=== PATIENT | female | born 1965 | race Caucasian/White ===

== ENCOUNTER → 2023-09-12 15:33 | Outpatient (REF) | payer OTHER, SELFPAY | LOC: HWWDC 15:33 | PROVIDERS: ATTENDING PHYSICIAN Obstetrics & Gynecology; FAMILY PHYSICIAN Family Medicine | DX: Z12.31 Encounter for screening mammogram for malignant neoplasm of breast (principal) | CPT/HCPCS: 77063; 77067 ==

== ENCOUNTER 2023-11-01 15:22 | Emergency (ER) | payer OTHER, SELFPAY ==
[2023-11-01 15:23] VITALS: BP 159/110
--- NOTE | 2023-11-01 16:09 | ED.GENMED ---
History of Present Illness
General
Chief Complaint: Generalized Pain
Source: patient
Time Seen by Provider: 11/01/23 15:57
Travel History
Have you had any contact with someone who has COVID-19?: No
Do you have any symptoms of coronavirus? Fever > 100 degrees, chills, cough, shortness of breath, sore throat, loss of taste or smell, muscle aches, or headache?: No
History of Present Illness
History of Present Illness:
58-year-old female with past medical history of hypertension, mild chronic kidney disease, anxiety for evaluation after she has had increased joint pain over the last 4 to 5 days stating her fingers, bilateral wrists, shoulders, knees, ankles are
all aching. Patient states that she has been working outside around her daughter's house and states that while the activity itself is usual for her she is concerned for possible tick bite although noting she has not seen any ticks on her nor any
rashes, fevers or flulike symptoms. She has been taking Tylenol with some relief. Denies any history of similar. Family history was noncontributory. Social history was also contributory.
Past History
Past History
ED Past Medical History: HTN, Psychiatric (Anxiety) and Other ( fatty liver)
ED Past Surgical History: Cholecystectomy and (x2)
Social History
Tobacco: Non-smoker
Alcohol: None
Drug: None
Personal:
Living: with family
Employment: Not employed
Family History
Family History: CAD
Review of Systems
Review of Systems
All Other Systems: ROS reviewed and negative except as documented in HPI and ROS
Phy Exam
Physical Exam
Physical Exam:
GENERAL: Alert , in no apparent distress
EYE: conjunctiva clear
NECK: Supple
ENT: o/p clr, mmm.
CARDIAC: Regular rate and rhythm
LUNGS: Clear breath sounds bilaterally, no acute respiratory distress, no wheezes/rales/rhonchi
NEUROLOGICAL: Alert and oriented
SKIN: Warm and dry, skin intact.
MUSCULOSKELETAL: well perfused. No edema or erythema. Patient allows for full range of motion of bilateral upper and lower extremities at all major joints without much difficulty. No crepitus.
PSYCH: Normal and appropriate interaction.
Scores
Heart Failure Risk
Heart Failure Risk Score: Not Applicable
Heart Score for Chest Pain Patients
STEMI patient?: Not applicable
Withdrawal Assessment of Alcohol
Withdrawal Assessment Completed?: Not applicable
Course
Orders/Labs/Results
Orders:
Orders
11/01/23 16:17
CRP [C-Reactive Protein] Urgent
Complete Blood Count/With Diff Urgent
Comprehensive Metabolic Panel Urgent
ESR [Erythrocyte Sed Rate] Urgent
Lyme Progressive Urgent
Abnormal Lab Results
11/01/23
16:17
Neutrophils % 78.0 H %
(42.2-75.2)
Lymphocytes % 16.4 L %
(20.5-51.1)
BUN 18 H mg/dl
(7-17)
Glucose 111 H mg/dl
(70-99)
Calcium 10.5 H mg/dl
(8.4-10.2)
ALT 39 H U/L
(0-35)
11/01/23 16:17
11/01/23 16:17
Vital Signs
Initial and Last Documented VS:
Initial Vital Signs
Temp Pulse Resp BP Pulse Ox
98.7 F 107 19 159/110 97
11/01/23 15:23 11/01/23 15:23 11/01/23 15:23 11/01/23 15:23 11/01/23 15:23
Last Documented Vital Signs
Temp Pulse Resp BP Pulse Ox
98.7 F 107 19 159/110 97
11/01/23 15:23 11/01/23 15:23 11/01/23 15:23 11/01/23 15:23 11/01/23 15:23
MDM/Problems Addressed
Differential Diagnosis Includes:
Rheumatological disorder given polyarthropathy and patient's age, less concern for infection but given outdoor yard work over the last few weeks will check a Lyme titer. Less concern for viral syndrome
MDM/Problems Addressed:
58-year-old female presenting to the emergency department for polyarthropathy that has been ongoing for the last 4 to 5 days. Patient is in no acute distress and otherwise hemodynamically stable. No outward signs of infection. Will check labs
including inflammatory markers. Overall I am not suspicious for any emergent pathologies and patient will likely need to follow-up with primary care provider for further testing and potentially even a rheumatological workup. Will trial steroids as
patient has chronic kidney disease and would like to avoid NSAIDs but would like patient to have some benefit from an anti-inflammatory. Anticipate discharge home.
Chronic conditions affecting care: HTN
*Pulse Oximetry
Patient hypoxic: no
*Critical Care Note
Total Time (30-74mins, 75-104mins- exclusive of procedures): Not Applicable
Patient Management
Escalation/DeEscalation of care consider admission/obs:
Patient's labs are unremarkable. She is ultimately stable for discharge home and outpatient follow-up with primary care provider. Aware of return precautions. Patient was also made aware that she will be notified via telephone if any
abnormalities on her Lyme test.
ED Attending Note
-
Portions of this chart may have been created with voice recognition software.� Occasional wrong word or��sound alike� substitutions may have occurred due to the inherent limitations of voice recognition software.
Discharge Plan
Departure
Patient Disposition: Home (Routine Discharge)
Date of Disposition: 11/01/23
Time of Disposition: 17:22
Patient with high blood pressure during this ER visit?: Yes
Discharge Problem:
Polyarthralgia
Instructions: Joint Pain
Prescriptions:
New
prednisone 10 mg Tablet
See Rx Instructions .ROUTE .COMPLEX Qty: 30 0RF
Rx Instructions:
Take By Mouth:
40 mg daily x3 days, 30 mg daily x3 days,
20 mg daily x3 days, 10 mg daily x3 days.
No Action
lorazepam 1 MG tablet
1 mg PO BID PRN (Reason: anxiety)
Fllpllp-Bilhti-Efqp 20-5-12.5
1 tab PO DAILY
ondansetron 4 mg tablet,disintegrating
4 mg PO TIDPRN PRN (Reason: nausea/vomiting) Qty: 10 0RF
pantoprazole [Protonix] 40 mg tablet,delayed release (DR/EC)
40 mg PO DAILY 14 Days Qty: 14 0RF
Referrals:
Jaswinder Horowitz MD [Family Provider] -
Interventions
Interventions:
*Risk Screen - Suicide Last Done: 11/01/23 15:23
*General Assessment Last Done: 11/01/23 15:23
*Neglect/Abuse Screening Last Done: 11/01/23 15:23
ED- Fall Risk Assessment Last Done: 11/01/23 15:50
*ED COVID-19 Vaccine History Last Done: 11/01/23 15:26
*Nursing Disposition Last Done: 11/01/23 17:31
Discharge Date and Time
Discharge Date/Time: 11/01/23 17:32
Print Language: ROMANSH
[2023-11-01 16:33] LABS: % Basophils 0.3 % (0-2); % Immature Granulocytes 0.4 % (0-0.5); % Lymphocytes 16.4 % (20.5-51.1); % Monocytes 4.9 % (1.7-9.3); Absolute Lymphocytes 1.3 10^3/uL (1.2-3.4); Absolute Monocytes 0.4 10^3/uL (0.1-0.6); Absolute Neutrophils 6.1 10^3/uL (1.4-6.5); Hematocrit 40.2 % (37.0-47.0); Hemoglobin 14.5 g/dL (12.0-16.0); Mean Corp Hgb Conc. 36.1 g/dL (33.0-37.0); Mean Corpuscular Hgb 30.3 pg (27.0-31.0); Mean Corpuscular Volume 84.1 fL (81.0-99.0); Mean Platelet Volume 9.1 fL (7.4-10.4); Nucleated Red Blood Cells % 0 %; Platelet Count 273 10^3/uL (130-400); Red Blood Cell Count 4.78 10^6/uL (4.20-5.40); Red Cell Dist. Width 12.5 % (11.5-14.5); White Blood Cell Count 7.8 10^3/uL (4.8-10.8)
[2023-11-01 16:48] LABS: Erythrocyte Sed Rate 12 mm/hour (0-20)
[2023-11-01 16:49] LABS: ALT (SGPT) 39 U/L (0-35); AST (SGOT) 28 U/L (14-36); Albumin 4.8 g/dl (3.5-5.0); Alkaline Phosphatase 80 U/L (38-126); Blood Urea Nitrogen 18 mg/dl (7-17); Calcium 10.5 mg/dl (8.4-10.2); Carbon Dioxide 25 mmol/L (22-30); Chloride 101 mmol/L (98-107); Glucose 111 mg/dl (70-99); Potassium 3.9 mmol/L (3.5-5.1); Sodium 137 mmol/L (135-145); Total Bilirubin 0.9 mg/dl (0.2-1.3); Total Protein 7.8 g/dl (6.3-8.2); eGFR > 60.00
[2023-11-01 16:53] LABS: C-Reactive Protein < 5.00 mg/L (0.0-10.00)
[2023-11-03 14:31] LABS: Lyme Antibody Screen, EIA Negative (Negative)
== END 2023-11-01 17:32 | disposition home or self-care (01) ==
LOC: EMR 15:22
PROVIDERS: Physician Assistant Medical; EMERGENCY PHYSICIAN Emergency Medicine; FAMILY PHYSICIAN Family Medicine
DX: M25.50 Pain in unspecified joint (principal); I12.9 Hypertensive chronic kidney disease with stage 1 through stage 4 chronic kidney disease, or unspecified chronic kidney disease; N18.9 Chronic kidney disease, unspecified; F41.9 Anxiety disorder, unspecified; K76.0 Fatty (change of) liver, not elsewhere classified; Z82.49 Family history of ischemic heart disease and other diseases of the circulatory system; Z90.49 Acquired absence of other specified parts of digestive tract
CPT/HCPCS: 99283; 80053; 85025; 85652; 86140; 86618

== ENCOUNTER → 2023-11-21 13:36 | Outpatient (REF) | payer OTHER, SELFPAY | LOC: HWRAD 13:36 | PROVIDERS: ATTENDING PHYSICIAN Advanced Practice Midwife; FAMILY PHYSICIAN Family Medicine | DX: N95.0 Postmenopausal bleeding (principal) | CPT/HCPCS: 76830; 76856 ==

== ENCOUNTER → 2024-10-08 10:23 | Outpatient (REF) | payer OTHER, SELFPAY | LOC: WDC 10:23 | PROVIDERS: ATTENDING PHYSICIAN Obstetrics & Gynecology; FAMILY PHYSICIAN Family Medicine | DX: Z12.31 Encounter for screening mammogram for malignant neoplasm of breast (principal) | CPT/HCPCS: 77063; 77067 ==

== ENCOUNTER 2024-10-12 12:06 | Emergency (ER) | payer OTHER, SELFPAY ==
[2024-10-12 12:10] VITALS: BP 136/96
[2024-10-12 12:26] LABS: % Basophils 0.4 % (0-2); % Eosinophils 0.3 % (0-6); % Immature Granulocytes 0.1 % (0-0.5); % Lymphocytes 18.2 % (20.5-51.1); % Monocytes 6.6 % (1.7-9.3); % Neutrophils 74.4 % (42.2-75.2); Absolute Lymphocytes 1.3 10^3/uL (1.2-3.4); Absolute Monocytes 0.5 10^3/uL (0.1-0.6); Absolute Neutrophils 5.3 10^3/uL (1.4-6.5); Hematocrit 45.7 % (37.0-47.0); Hemoglobin 15.8 g/dL (12.0-16.0); Mean Corp Hgb Conc. 34.6 g/dL (33.0-37.0); Mean Corpuscular Hgb 29.9 pg (27.0-31.0); Mean Corpuscular Volume 86.6 fL (81.0-99.0); Mean Platelet Volume 9.5 fL (7.4-10.4); Nucleated Red Blood Cells % 0 %; Platelet Count 236 10^3/uL (130-400); Red Blood Cell Count 5.28 10^6/uL (4.20-5.40); Red Cell Dist. Width 12.9 % (11.5-14.5); White Blood Cell Count 7.1 10^3/uL (4.8-10.8)
[2024-10-12 12:44] LABS: ALT (SGPT) 42 U/L (0-35); AST (SGOT) 25 U/L (14-36); Albumin 5.4 g/dl (3.5-5.0); Alkaline Phosphatase 71 U/L (38-126); Blood Urea Nitrogen 26 mg/dl (7-17); Calcium 10.2 mg/dl (8.4-10.2); Carbon Dioxide 26 mmol/L (22-30); Chloride 101 mmol/L (98-107); Glucose 115 mg/dl (70-99); Potassium 3.8 mmol/L (3.5-5.1); Sodium 141 mmol/L (135-145); Total Bilirubin 1.2 mg/dl (0.2-1.3); eGFR 57.88
[2024-10-12 12:55] LABS: Troponin I < 0.012 ng/ml
--- NOTE | 2024-10-12 13:09 | ED.GENMED ---
History of Present Illness
General
Chief Complaint: Chest Pain
Time Seen by Provider: 10/12/24 13:08
History of Present Illness
History of Present Illness:
TIME OF INITIAL ENCOUNTER: 1:10 PM
HPI: Patient presents with chest discomfort that started around 7 PM last night. She reports it is feeling like a pressure that was coming and going and not related to exertion. She states she has been under a lot of stress regarding a recent
mammogram report that she received. She fell asleep around 9 PM and was able to sleep the night until 5 AM. Shortly after 5 AM she developed some chest discomfort again that lasted intermittently for a few hours and continues to improve and does
not think that she has any now. She has no shortness of breath. She has no cough. No fevers.
EXAM:
GENERAL: Well appearing in no distress
HEENT: Moist oral mucosa
CARDIOVASCULAR: No murmurs, borderline tachycardic heart rate, regular rhythm, No chest wall tenderness
PULMONARY: No respiratory distress, breath sounds are clear and equal
ABDOMEN: Soft with no peritoneal signs, no tenderness
NEUROLOGIC: Excellent strength all extremities, no coordination deficits
PSYCHIATRIC: Appropriate mental status, normal insight and judgement, appears slightly anxious
EXTREMITIES: Nontender, no edema, moves all extremities equally
SKIN: No rash, no lesions
NUMBER AND COMPLEXITY OF PROBLEMS ADDRESSED AT THE ENCOUNTER
� Chronic conditions affecting care: High blood pressure, cholecystectomy, anxiety
� Acute Exacerbation and/or Progression of Chronic Illness: This is an acute problem
� Differential Diagnosis includes: Anxiety related chest pain, chest wall pain, ACS, no clinical evidence of pneumothorax or pneumonia based on physical examination
AMOUNT AND/OR COMPLEXITY OF DATA TO BE REVIEWED AND ANALYZED
� I performed an independent evaluation of and my interpretation is:
EKG: Sinus 114, left axis deviation, nonspecific ST abnormality, no significant change from 01/11/2023 and she was at time with a rate of 110
CT:
X-rays:
Laboratory Studies: CBC normal, chemistries show creatinine of 1.1 with a GFR of 58, troponin less than 0.012
Other:
� Review of other/old records: I reviewed records, she has had several anxiety related visits in the emergency department in the past
� Clinical information was obtained by an independent historian: None needed
� Prescriptions/Medications Considered but not given:
� Further testing considered but not performed:
RISK OF COMPLICATIONS AND/OR MORBIDITY OR MORTALITY OF PATIENT MANAGEMENT
� Social determinants of health affecting care: Lives at home
� Discussion with other providers:
� Escalation of care including admission/observation vs risk of discharge considered: The patient does have a history of anxiety and no longer takes benzos. She has been very concerned about a mammogram report that she recently
received. Her symptoms started well over 12 hours ago and troponin negative. She never had any exertional symptoms. She states that her butcher scullion in [place] did a stress test 2 years ago and she states that it was normal. Reports an
unremarkable echo last year. I recommend that she follows up with her butcher scullion but I offered to have her see one of the [facility] doctors but she wants to just follow-up with the butcher scullion who already knows her.
ANY OTHER UPDATES:
Past History
Past History
ED Past Medical History: HTN, Psychiatric (Anxiety) and Other ( fatty liver)
ED Past Surgical History: Cholecystectomy and (x2)
Social History
Tobacco: Non-smoker
Alcohol: None
Drug: None
Personal:
Living: with family
Employment: Not employed
Family History
Family History: CAD
Phy Exam
Physical Exam
Physical Exam:
See HPI
Scores
Heart Score for Chest Pain Patients
STEMI patient?: Not applicable
Course
Orders/Labs/Results
Orders:
Orders
10/12/24 12:07
EKG [Electrocardiogram (*1)] Urgent
Reason for Study: Chest Pain
EKG- Treatment ONCE
10/12/24 12:18
Complete Blood Count/With Diff Urgent
Comprehensive Metabolic Panel Urgent
Troponin I Urgent
Abnormal Lab Results
10/12/24
12:18
Lymphocytes % 18.2 L %
(20.5-51.1)
BUN 26 H mg/dl
(7-17)
Creatinine 1.1 H mg/dL
(0.6-1.0)
Glucose 115 H mg/dl
(70-99)
ALT 42 H U/L
(0-35)
Albumin 5.4 H g/dl
(3.5-5.0)
10/12/24 12:18
10/12/24 12:18
Vital Signs
Initial and Last Documented VS:
Initial Vital Signs
Temp Pulse Resp BP Pulse Ox
36.9 C 109 20 136/96 97
10/12/24 12:10 10/12/24 12:10 10/12/24 12:10 10/12/24 12:10 10/12/24 12:10
Last Documented Vital Signs
Temp Pulse Resp BP Pulse Ox
36.9 C 109 20 136/96 97
10/12/24 12:10 10/12/24 12:10 10/12/24 12:10 10/12/24 12:10 10/12/24 12:10
*Critical Care Note
Total Time (30-74mins, 75-104mins- exclusive of procedures): Not Applicable
ED Attending Note
-
Portions of this chart may have been created with voice recognition software.� Occasional wrong word or��sound alike� substitutions may have occurred due to the inherent limitations of voice recognition software.
Discharge Plan
Departure
Patient Disposition: Home (Routine Discharge)
Date of Disposition: 10/12/24
Time of Disposition: 13:20
Patient with high blood pressure during this ER visit?: Yes
Discharge Problem:
Chest pain
Instructions: Chest Pain NON-[facility] [place] Follow Up, BLOOD PRESSURE
Prescriptions:
No Action
lorazepam 1 MG tablet
1 mg PO BID PRN (Reason: anxiety)
Burvrdh-Ksdfos-Adky 20-5-12.5
1 tab PO DAILY
ondansetron 4 mg tablet,disintegrating
4 mg PO TIDPRN PRN (Reason: nausea/vomiting) Qty: 10 0RF
pantoprazole [Protonix] 40 mg tablet,delayed release (DR/EC)
40 mg PO DAILY 14 Days Qty: 14 0RF
prednisone 10 mg Tablet
See Rx Instructions .ROUTE .COMPLEX Qty: 30 0RF
Rx Instructions:
Take By Mouth:
40 mg daily x3 days, 30 mg daily x3 days,
20 mg daily x3 days, 10 mg daily x3 days.
Activity Restrictions/Additional Instructions:
Your symptoms possibly could be related to anxiety. At this point we do not see any signs of a heart attack based on EKG and blood test called troponin. However I would strongly recommend that you follow-up with your butcher scullion in [place].
Return here if worse or other concerns.
Interventions
Interventions:
*Risk Screen - Suicide Last Done: 10/12/24 12:10
Discharge Date and Time
Print Language: INDONESIAN
== END 2024-10-12 13:54 | disposition home or self-care (01) ==
LOC: EMR 12:06
PROVIDERS: Student in an Organized Health Care Education/Training Program; EMERGENCY PHYSICIAN Emergency Medicine; FAMILY PHYSICIAN Family Medicine
DX: R07.89 Other chest pain (principal); I10 Essential (primary) hypertension; F41.9 Anxiety disorder, unspecified; K76.0 Fatty (change of) liver, not elsewhere classified; Z82.49 Family history of ischemic heart disease and other diseases of the circulatory system; Z90.49 Acquired absence of other specified parts of digestive tract
CPT/HCPCS: 99283; 80053; 84484; 85025; 93005